=== PATIENT | male | born 1980 | race Caucasian/White ===

== ENCOUNTER 2021-07-17 15:16 | Emergency (ER) | payer SELFPAY ==
[2021-07-17] MEDS ORDERED: Sodium Chloride 0.9% 1,000 ML IV SCH (16:30)
[2021-07-17] MEDS ORDERED: Ondansetron 4 MG/2 ML SDV IVPUSH ONE (16:32)
[2021-07-17] MEDS ORDERED: Ketorolac 30 MG/ML SDV IVPUSH ONE (16:32)
--- NOTE | 2021-07-17 16:42 | EDM.PDOC ---
ED HPI GENERAL MEDICAL PROBLEM - General Chief Complaint: Abdominal Pain Stated Complaint: ABDOMINAL PAIN, DIFFICULTY URINATING, VOMITING Time Seen by Provider: 07/17/21 16:12 Source of Information: Reports: Patient History Limitations: Reports: No Limitations - History of Present Illness INITIAL COMMENTS - FREE TEXT/NARRATIVE: Acute left flank pain since 1000 today. Pain is sharp and comes and goes. Radiates from left flank into left scrotum. Worse with urination. Nausea and vomiting. No history of stones or hernias. No fever or chills. No history of abdomen or surgery. Left Groin Pain Score (Numeric/FACES): 10 - Related Data Allergies Allergy/AdvReac Type Severity Reaction Status Date / Time No Known Allergies Allergy Verified 07/17/21 16:21 Home Meds: Home Meds NK [No Known Home Meds] 07/17/21 [History] Past Medical History - Past Health History Medical/Surgical History: Denies Medical/Surgical History Social & Family History - Tobacco Use Tobacco Use Status *Q: Never Tobacco User - Caffeine Use Caffeine Use: Reports: Coffee - Recreational Drug Use Recreational Drug Use: No ED ROS GENERAL - Review of Systems Review Of Systems: See Below Constitutional: Reports: No Symptoms. Denies: Fever, Chills Respiratory: Reports: No Symptoms, Wheezing, Cough Cardiovascular: Reports: No Symptoms, Chest Pain GI/Abdominal: Reports: Nausea, Vomiting : Reports: Flank Pain, Frequency Skin: Reports: No Symptoms Neurological: Reports: No Symptoms ED EXAM, RENAL/ - Physical Exam Exam: See Below Exam Limited By: No Limitations General Appearance: Alert, WD/WN, No Apparent Distress Ears: Normal External Exam, Normal Canal GI/Abdominal: Soft, Non-Tender (Male) Exam: No Hernia, Normal Inspection. No: Scrotum Tenderness (L), Scrotum Tenderness (R), Testicular Mass, Testicular Tenderness (R) Back Exam: CVA Tenderness (L) Skin Exam: No: Rash, Zoster-Like Rash Course - Vital Signs Text/Narrative:: The patient was assessed. VSS, In moderate pain. Exam= pain left flank, inguinal area ok, no signs of testicular torsion or incarcerated hernia. lab= leukocytosis, BMP is normal, normal U/A other than microscopic hematuria. Imaging= NCCT abd/pelvis mild left hydronephrosis with 5 mm stone at UVJ. The patient treated with IV fluids, Toradol and Zofran. Sent home with PO Toradol and Rx for Zofran. F/u with pcp or return to ER if symptoms worsen. Last Recorded V/S: Last Vital Signs Temp 35.7 C L 07/17/21 16:19 Pulse 67 07/17/21 16:19 Resp 14 07/17/21 16:19 BP 139/88 07/17/21 16:19 Pulse Ox 100 07/17/21 16:19 - Orders/Labs/Meds Orders: Active Orders 24 hr Category Date Time Status Sodium Chloride 0.9% [Normal Saline] 1,000 ml Med 07/17/21 16:30 Active IV ASDIRECTED Medication Orders Sodium Chloride (Normal Saline) 1,000 mls @ 1,000 mls/hr IV ASDIRECTED DONNA Last Admin: 07/17/21 17:09 Dose: 1,000 mls/hr Documented by: POORNIMA Labs: Laboratory Tests 07/17/21 07/17/21 07/17/21 Range/Units 16:50 16:50 18:06 WBC 20.0 H (4.5-11.0) K/uL RBC 4.96 (4.30-5.90) M/uL Hgb 14.0 (12.0-15.0) g/dL Hct 40.6 (40.0-54.0) % MCV 82 (80-98) fL MCH 28 (27-31) pg MCHC 35 (32-36) % Plt Count 334 (150-400) K/uL Neut % (Auto) 91.4 H (36-66) % Lymph % (Auto) 4.0 L (24-44) % Morgan % (Auto) 4.4 (2-6) % Eos % (Auto) 0.0 L (2-4) % Baso % (Auto) 0.2 (0-1) % Sodium 135 L (140-148) mmol/L Potassium 3.6 (3.6-5.2) mmol/L Chloride 97 L (100-108) mmol/L Carbon Dioxide 28 (21-32) mmol/L Anion Gap 13.6 (5.0-14.0) mmol/L BUN 13 (7-18) mg/dL Creatinine 1.1 (0.8-1.3) mg/dL Est Cr Clr Drug Dosing 90.49 mL/min Estimated GFR (MDRD) > 60 (>60) Glucose 118 H (74-106) mg/dL Calcium 9.1 (8.5-10.1) mg/dL Urine Color Yellow (YELLOW) Urine Appearance Cloudy A (CLEAR) Urine pH 5.5 (5.0-8.0) Ur Specific [place] >= 1.030 (1.008-1.030) Urine Protein 30 H (NEGATIVE) mg/dL Urine Glucose (UA) Normal (NEGATIVE) mg/dL Urine Ketones 15 H (NEGATIVE) mg/dL Urine Occult Blood Large H (NEGATIVE) Urine Nitrite Negative (NEGATIVE) Urine Bilirubin Small (NEGATIVE) Urine Urobilinogen 0.2 (0.2-1.0) EU/dL Ur Leukocyte Esterase Negative (NEGATIVE) Urine RBC 10-20 H (0-5) Urine WBC Not seen (0-5) Ur Epithelial Cells Not seen Amorphous Sediment Numerous Urine Bacteria Few Urine Mucus Not seen Meds: Medications Generic Name Dose Route Start Last Admin Trade Name Freq PRN Reason Stop Dose Admin Sodium Chloride 1,000 mls @ 1,000 mls/hr 07/17/21 16:30 07/17/21 17:09 Normal Saline IV 1,000 mls/hr ASDIRECTED DONNA Administration Discontinued Medications Generic Name Dose Route Start Last Admin Trade Name Freq PRN Reason Stop Dose Admin Ketorolac Tromethamine 30 mg 07/17/21 16:32 07/17/21 17:03 Ketorolac 30 Mg/Ml Sdv IVPUSH 07/17/21 16:33 30 mg ONETIME ONE Administration Ondansetron HCl 4 mg 07/17/21 16:32 07/17/21 17:03 Ondansetron 4 Mg/2 Ml Sdv IVPUSH 07/17/21 16:33 4 mg ONETIME ONE Administration Departure - Departure Time of Disposition: 18:46 Disposition: Home, Self-Care 01 Condition: Good Clinical Impression: Kidney stone on left side - Discharge Information Instructions: Kidney Stones, [id number] Referrals: PCP,None [Primary Care Provider] - Forms: ED Department Discharge Sepsis Event Note (ED) - Evaluation Sepsis Screening Result: No Definite Risk - Focused Exam Vital Signs: Vital Signs Temp Pulse Resp BP Pulse Ox 07/17/21 16:19 35.7 C L 67 14 139/88 100 - My Orders Last 24 Hours: My Active Orders 07/17/21 16:30 Sodium Chloride 0.9% [Normal Saline] 1,000 ml IV ASDIRECTED - Assessment/Plan Last 24 Hours: My Active Orders 07/17/21 16:30 Sodium Chloride 0.9% [Normal Saline] 1,000 ml IV ASDIRECTED
--- NOTE | 2021-07-17 17:19 | CRLCT ---
For Patients: As a result of the Century Cures Act, medical imaging exams and procedure reports are released immediately into your electronic medical record. You may view this report before your referring provider. If you have questions, please contact your health care provider. INDICATION: Left flank pain TECHNIQUE: CT abdomen and pelvis without contrast. COMPARISON: None FINDINGS: Lower chest: Unremarkable. Liver: There are few subcentimeter hypodensities in the liver which are too small to accurately characterize but likely represent cysts. Spleen: Unremarkable. Pancreas: Unremarkable. Gallbladder and bile ducts: Unremarkable. Adrenal glands: Unremarkable. Kidneys: Mild left hydronephrosis and hydroureter secondary to a 5 mm stone at the left ureteral vesical junction. No additional collecting system stone identified. GI tract: Unremarkable. Appendix is normal. Vascular structures: Unremarkable. Lymph nodes: Unremarkable. Miscellaneous: Unremarkable. No free air or significant free fluid. Pelvic Organs: Unremarkable. Bones: Unremarkable for age. IMPRESSION: Mild left hydronephrosis and hydroureter secondary to a 5 mm stone at the left ureteral vesical junction. No additional collecting system stone identified. Please note that all CT scans at this facility use dose modulation, iterative reconstruction, and/or weight-based dosing when appropriate to reduce radiation dose to as low as reasonably achievable. Dictated by Jody Cloud MD @ 07/17/2021 5:17:22 PM (Electronically Signed)
[2021-07-17] MEDS: Ketorolac 30 MG/ML SDV IVPUSH ONE ×2 (18:54→19:02)
== END 2021-07-17 19:08 | disposition home or self-care (01) ==
LOC: JP.ED 15:16
DX: N13.2 Hydronephrosis with renal and ureteral calculous obstruction (principal)
CPT/HCPCS: 36415; 74176; 80048; 81001; 85025; 96374; 96375; 99284; J1885; J2405; J7030